=== PATIENT | female | born 1985 | race Hispanic/Latino ===

== ENCOUNTER 2018-01-22 08:17 | Emergency (ER) | payer BC | END 2018-01-22 09:39 | disposition home or self-care (01) | LOC: EDH 08:17 | DX: J06.9 Acute upper respiratory infection, unspecified (principal); M94.0 Chondrocostal junction syndrome [Tietze]; H92.03 Otalgia, bilateral; Z98.890 Other specified postprocedural states; Z88.8 Allergy status to other drugs, medicaments and biological substances | CPT/HCPCS: 99281 ==

== ENCOUNTER 2018-10-11 15:31 | Emergency (ER) | payer BC ==
[2018-10-11 16:09] LABS: APPEARANCE,URINE CLOUDY (CLEAR); BILIRUBIN,URINE SMALL (NEGATIVE); GLUCOSE, URINE (UA) NEGATIVE (NEGATIVE); KETONES,URINE NEGATIVE (NEGATIVE); LEUKOCYTE ESTERASE ,URINE MODERATE (NEGATIVE); NITRATE,URINE POSITIVE (NEGATIVE); OCCULT BLOOD,URINE LARGE (NEGATIVE); PH,URINE 6.5 (5.0-8.0); PROTEIN,URINE 100 mg/dL (NEGATIVE)
[2018-10-11 16:10] LABS: HCG,QUAL RESULT NEGATIVE (NEGATIVE)
[2018-10-11 16:24] LABS: BACTERIA,URINE Few /HPF (None Seen); COLOR,URINE RED (YELLOW); RBC,URINE Full Field /HPF (0-1)
[2018-10-11 16:26] LABS: SQUAMOUS EPITHELIAL CELL,UR None Seen /HPF (0-2)
== END 2018-10-11 16:28 | disposition home or self-care (01) ==
LOC: EDH 15:31
DX: N39.0 Urinary tract infection, site not specified (principal); Z88.8 Allergy status to other drugs, medicaments and biological substances
CPT/HCPCS: 81001; 81025

== ENCOUNTER 2019-05-07 13:46 | Emergency (ER) | payer BC | END 2019-05-07 17:53 | disposition home or self-care (01) | LOC: EDH 13:46 | DX: J20.9 Acute bronchitis, unspecified (principal); Z98.890 Other specified postprocedural states; Z88.1 Allergy status to other antibiotic agents | CPT/HCPCS: 71046; 81025; 93005 ==